=== PATIENT | male | born 1995 | race African-American/Black ===

== ENCOUNTER 2018-12-26 10:00 | Inpatient (IN) | payer OTHER ==
[~2018-12-26] VITALS: Ht 185.4 cm; Wt 77.3 kg
[~2018-12-26 10:00] MED LIST: RINGERS SOLUTION,LACTATED 1,000 ML IV ONE
[2019-01-03 13:54] LABS: BASOPHILS % (AUTO) 0.8 % (0.0-2.0); EOSINOPHILS % (AUTO) 0.5 % (1.0-6.0); HEMATOCRIT 46.7 % (41-53); HEMOGLOBIN 15.5 g/dL (13.5-17.5); LYMPHOCYTES # (AUTO) 1.3 K/uL (1.0-4.8); LYMPHOCYTES % (AUTO) 23.7 % (22.0-44.0); MEAN CORPUSCULAR HEMOGLOBIN 27.3 pg (26.0-34.0); MEAN CORPUSCULAR HGB CONC 33.1 G/dL (31.0-37.0); MEAN CORPUSCULAR VOLUME 83 fL (80-100); MONOCYTES # (AUTO) 0.4 K/uL (0.1-1.0); NEUTROPHILS # (AUTO) 3.6 K/uL (1.8-7.7); PLATELET COUNT (AUTO) 175 K/uL (150-450); RED BLOOD CELL COUNT(AUTO) 5.66 MIL/uL (4.50-5.90); RED CELL DISTRIBUTION WIDTH 13.5 % (11.5-14.5)
[2019-01-03 14:02] LABS: ANION GAP 10 mmol/L (8-16); CALCIUM, TOTAL 8.9 mg/dL (8.8-10.5); CARBON DIOXIDE 30 mmol/L (22-29); CHLORIDE 101 mmol/L (98-107); CREATININE 1.03 mg/dL (0.60-1.30); GLOMERULAR FILTR. RATE CALC > 60 mL/min (>60); GLUCOSE,RANDOM 118 mg/dL (70-110); SODIUM SERUM 141 mmol/L (136-145); UREA NITROGEN, BLOOD 13 mg/dL (7-18)
[2019-01-03 14:08] LABS: ALANINE AMINOTRANSFERASE 19 U/L (12-78); ALBUMIN 4.1 g/dL (3.4-5.0); ALKALINE PHOSPHATASE 82 U/L (46-116); ASPARTATE AMINOTRANSFERASE 15 U/L (15-37); BILIRUBIN,TOTAL 0.4 mg/dL (0.1-1.0); PROTHROMBIN TIME 10.7 SEC (9.4-11.6); TOTAL PROTEIN, SERUM 7.3 g/dL (6.4-8.2)
[2019-01-09] MEDS ORDERED: RINGERS SOLUTION,LACTATED 1,000 ML IV ONE ×3 (10:02→12:00)
[2019-01-09] MEDS ORDERED: OxyCODONE HCL 5 MG IR TABLET PO PRN (10:15)
[2019-01-09] MEDS ORDERED: OxyCODONE HCL 10 MG IR TABLET PO PRN (10:15)
[2019-01-09] MEDS ORDERED: MAG HYDROX/AL HYDROX/SIMETH 30 ML SUSP UDCUP PO PRN (10:15)
[2019-01-09] MEDS ORDERED: NALOXONE HCL 0.4 MG/ML VIAL IVP PRN (10:15)
[2019-01-09] MEDS ORDERED: HYDROmorphone 2 MG/ML SYRINGE IVP PRN ×4 (10:15→13:15)
[2019-01-09] MEDS ORDERED: ONDANSETRON HCL 4 MG/2 ML VIAL IVP PRN ×3 (10:15→19:30)
[2019-01-09] MEDS ORDERED: ZOLPIDEM TARTRATE 10 MG TABLET PO PRN (10:15)
[2019-01-09] MEDS ORDERED: DEXAMETHASONE SOD PHOS 4 MG/ML VIAL IVP PRN (10:15)
[2019-01-09] MEDS ORDERED: BENZOCAINE/MENTHOL LOZENGE PO PRN (10:15)
[2019-01-09] MEDS ORDERED: DiphenhydrAMINE HCL 50 MG/ML VIAL IVP PRN (10:15)
[2019-01-09] MEDS ORDERED: VANCOMYCIN HCL 1 GM/VIAL ONE ×2 (10:22→12:03)
[2019-01-09] MEDS ORDERED: BUPIVACAINE LIPOSOME/PF 1.3%-13.3MG/ML SUSPENSION 20 ML VIAL INJ ONE (10:30)
[2019-01-09] MEDS ORDERED: MIDAZOLAM HCL 2 MG/2 ML VIAL IVP ONE (12:00)
[2019-01-09] MEDS ORDERED: EPHEDrine SULFATE 50 MG/ML VIAL IM ONE (12:00)
[2019-01-09] MEDS ORDERED: FentaNYL CITRATE-PF 250 MCG/5 ML VIAL IVP ONE (12:00)
[2019-01-09] MEDS ORDERED: VECURONIUM BROMIDE 10 MG/VIAL IVP ONE (12:00)
[2019-01-09] MEDS ORDERED: SUCCINYLCHOLINE CHLORIDE 20 MG/ML 10 ML VIAL IVP ONE (12:00)
[2019-01-09] MEDS ORDERED: NEOSTIGMINE METHYLSULFATE 1 MG/ML 10 ML VIAL IVP ONE (12:00)
[2019-01-09] MEDS ORDERED: PROPOFOL 1% 20 ML VIAL IVP ONE (12:00)
[2019-01-09] MEDS ORDERED: LIDOCAINE/PF 2% 5 ML VIAL INJ ONE (12:00)
[2019-01-09] MEDS ORDERED: SODIUM CHLORIDE 0.9% 100 ML ONE (12:03)
[2019-01-09] MEDS ORDERED: HYDROmorphone 2 MG/ML SYRINGE ONE (14:49)
[2019-01-09] MEDS: ACETAMINOPHEN 1000 MG/ISO-OSM 100 ML IV SCH ×2 (16:25→21:30)
[2019-01-09] MEDS: HYDROmorphone 2 MG/ML SYRINGE IVP PRN (16:27)
[2019-01-09 17:00] VITALS: BP 127/72
[2019-01-09 19:07] VITALS: BP 116/69
[2019-01-09] MEDS ORDERED: ZOLPIDEM TARTRATE 5 MG TABLET PO PRN (19:30)
[2019-01-09] MEDS ORDERED: 0.9% SODIUM CHLORIDE 10 ML SYRINGE IVP PRN (19:30)
[2019-01-09] MEDS: PANTOPRAZOLE SODIUM 40 MG/VIAL IVP SCH (19:45)
[2019-01-09] MEDS: DOCUSATE SODIUM 100 MG CAPSULE PO SCH (21:30)
[2019-01-09] MEDS: VANCOMYCIN HCL 1 GM/D5% WATER 200 ML IV SCH (22:08)
[2019-01-09 23:50] VITALS: BP 99/60
[2019-01-10] MEDS: ACETAMINOPHEN 1000 MG/ISO-OSM 100 ML IV SCH ×2 (03:03→08:00)
[2019-01-10 04:34] VITALS: BP 114/72
[2019-01-10 05:21] LABS: BASOPHILS % (AUTO) 0.4 % (0.0-2.0); EOSINOPHILS % (AUTO) 0.4 % (1.0-6.0); LYMPHOCYTES # (AUTO) 0.9 K/uL (1.0-4.8); LYMPHOCYTES % (AUTO) 15.8 % (22.0-44.0); MEAN CORPUSCULAR HEMOGLOBIN 28.4 pg (26.0-34.0); MEAN CORPUSCULAR HGB CONC 34.9 G/dL (31.0-37.0); MEAN CORPUSCULAR VOLUME 81 fL (80-100); MONOCYTES # (AUTO) 0.4 K/uL (0.1-1.0); MONOCYTES % (AUTO) 6.8 % (2.0-9.0); NEUTROPHILS # (AUTO) 4.2 K/uL (1.8-7.7); NEUTROPHILS % (AUTO) 76.6 % (40.0-70.0); PLATELET COUNT (AUTO) 152 K/uL (150-450); RED BLOOD CELL COUNT(AUTO) 4.91 MIL/uL (4.50-5.90); RED CELL DISTRIBUTION WIDTH 13.1 % (11.5-14.5)
[2019-01-10] MEDS ORDERED: DIAZEPAM 5 MG TABLET PO PRN (06:45)
[2019-01-10] MEDS: OxyCODONE HCL/ACETAMINOPHEN 5-325 MG TABLET PO PRN ×3 (06:51→20:36)
[2019-01-10 07:48] VITALS: BP 119/65
[2019-01-10] MEDS: PANTOPRAZOLE SODIUM 40 MG/VIAL IVP SCH (09:14)
[2019-01-10] MEDS: DOCUSATE SODIUM 100 MG CAPSULE PO SCH ×2 (09:14→20:36)
[2019-01-10] MEDS: VANCOMYCIN HCL 1 GM/D5% WATER 200 ML IV SCH (09:15)
[2019-01-10] MEDS ORDERED: SODIUM CHLORIDE 0.9% 250 ML IV ONE (09:28)
[2019-01-10] MEDS: HYDROmorphone 2 MG/ML SYRINGE IVP PRN (09:31)
[2019-01-10 16:02] VITALS: BP 115/69
[2019-01-10 20:07] VITALS: BP 114/64
[2019-01-10 23:15] VITALS: BP 108/61
[2019-01-11] MEDS: OxyCODONE HCL/ACETAMINOPHEN 5-325 MG TABLET PO PRN ×4 (00:10→16:13)
[2019-01-11 03:30] VITALS: BP 116/64
[2019-01-11 07:09] VITALS: BP 99/56
[2019-01-11] MEDS: DOCUSATE SODIUM 100 MG CAPSULE PO SCH (09:27)
[2019-01-11] MEDS: PANTOPRAZOLE SODIUM 40 MG/VIAL IVP SCH (09:27)
[2019-01-11 12:35] VITALS: BP 103/55
[2019-01-11 15:19] VITALS: BP 111/74
== END 2019-01-11 18:50 | disposition home health service (06) | DRG 460 ==
LOC: 6N 01-09 10:45 → INTOOBSV 01-09 10:45 → UNDOADMOB 01-09 10:45 → 4E 01-09 15:45 → OBSVTOIN 01-09 15:58 → INTOOBSV 01-09 15:58 → 6N 01-11 17:10
PROVIDERS: ADMIT Neurological Surgery; ATTEND Neurological Surgery
PROC: 0SB20ZZ Excision of Lumbar Vertebral Disc, Open Approach (ICD-10-PCS; 2019-01-09)
PROC: 0SG00A0 Fusion of Lumbar Vertebral Joint with Interbody Fusion Device, Anterior Approach, Anterior Column, Open Approach (ICD-10-PCS; principal; 2019-01-09 13:00)
DX: M51.36 Other intervertebral disc degeneration, lumbar region (principal); M54.17 Radiculopathy, lumbosacral region; F17.200 Nicotine dependence, unspecified, uncomplicated
CPT/HCPCS: 72131; 87081; 88300; 97116; 97162; 97166; 97530; 97535; C9113; C9290; J0131; J0330; J1170; J2250; J2405; J2704; J3010; J3370; J3490; J7050; J7120